=== PATIENT | male | born 1975 | race Caucasian/White ===

== ENCOUNTER 2019-04-04 09:01 | Observation (INO) ==
--- NOTE | 2019-03-27 16:28 | PAT Medication Instructions ---
Medication Instructions Date of Service March 27, 2019 Home Medications acetaminophen [Tylenol Extra Strength] 1,000 mg PO TID PRN aspirin [Aspir-81] 81 mg PO QAM diltiazem HCl 120 mg PO QAM fluticasone propionate [Flonase Allergy Relief] 2 spray INTRANASAL DAILY PRN glucosam hickey cip-[id number]-O-Mn 2 cap PO QAM turmeric root extract 1,000 mg PO QAM STOP taking 2 weeks before surgery glucosam hickey kqp-gtkdolqly-O-Mn 2 cap PO QAM turmeric root extract 1,000 mg PO QAM Take morning of surgery With a small sip of water, OTHERWISE NOTHING TO EAT OR DRINK AFTER MIDNIGHT: acetaminophen [Tylenol Extra Strength] 1,000 mg PO TID PRN (if needed, may be taken up to four hours before surgery) aspirin [Aspir-81] 81 mg PO QAM diltiazem HCl 120 mg PO QAM fluticasone propionate [Flonase Allergy Relief] 2 spray INTRANASAL DAILY PRN (if needed) Other Notes If you have any questions please call us at [phone] or [phone] or [phone] or [phone]
--- NOTE | 2019-03-28 08:56 | Anesthesiology Consultation ---
Date of Service March 28, 2019 Assessment & Plan (1) Encounter for pre-operative examination: Patient had cardiac MRI 04/02 ordered by patent prosecution attorney for evaluation of brief episode of nonsustained v tach he had while hospitalized for new-onset afib. MRI ordered to exclude right ventricular pathology. Preliminary reading of cardiac MRI showed possible acute/subacute myocarditis. Attempted to contact patient's patent prosecution attorney, but he was out of the office. [facility] patent prosecution attorney print production manager ([place]) would not comment on perioperative status as he is not familiar with the patient. Case discussed with Dr. Hodge, who feels the patient should be fine to tolerate anesthesia, but concern for surgeon placing hardware with possible infection. Spoke with Dr. Garcia directly, and he is OK with proceeding. Chart Review Chart Review: Acceptable Risk for Surgery and Patient seen in Pre Admission Testing Teaching & Discussion Instructed NPO after midnight before surgery, except medications with 15 cc of water. Medication instructions provided according to the PAT guidelines. History Surgery Operation Date: 04/04/19 09:05 Proposed Procedures p L4-L5 Decompression with Coflex Implantation - Henry Garcia DO Height/Weight Height: 6 ft 3 in Weight: 102.058 kg Allergies Allergy/AdvReac Type Severity Reaction Status Date / Time Penicillins Allergy Intermediate Rash Verified 04/03/19 09:51 Medications Home Medications Medication Instructions Recorded Confirmed Last Taken acetaminophen [Tylenol Extra 1,000 mg PO TID PRN 03/21/19 03/21/19 Unknown Strength] aspirin [Aspir-81] 81 mg PO QAM 03/21/19 03/21/19 Unknown diltiazem HCl 120 mg PO QAM 03/21/19 03/21/19 Unknown fluticasone propionate [Flonase 2 spray INTRANASAL DAILY PRN 03/21/19 03/21/19 Unknown Allergy Relief] glucosam hickey [id number]-mgzeepgwa-J-Mn 2 cap PO QAM 03/21/19 03/21/19 Unknown turmeric root extract 1,000 mg PO QAM 03/21/19 03/21/19 Unknown Past Medical History Medical History Atrial fibrillation DX'D 02/08/19-ON ASA 81mg Chronic back pain TO LEFT FOOT Exercise / Class Metabolic Activity 1 > 8 Run/Swim/Ski/Tennis Past Family History Family History Grandmother (Maternal) No problems noted. Grandmother (Paternal) Family history of diabetes mellitus Grandfather (Maternal) Family history of diabetes mellitus Past Surgical History Surgical History History of adenoidectomy History of herniorrhaphy BILAT History of myringotomy X 3 WITH EAR TUBES History of tonsillectomy Past Anesthesia History No Hx of Anesthesia Complications and No Family Hx of Anesthesia Complications History of PONV No Hx of PONV and No Hx of Motion Sickness Social History Smoking Status: Never smoker Do You Dip or Chew Tobacco: No Hx Alcohol Use: Yes Alcohol type: beer and wine alcohol intake frequency: 0-2 drinks per day (1/day) Hx Substance Use: No Review of Systems Pt denies any recent chest pain, shortness of breath, palpitations, cough, fever or URI. +mild URI last week, resolving now. Physical Exam Vital Signs BP: 154/84 P: 58bpm SPO2: 98% RA T: 98.5 F R: 16 ENMT Mouth: + dental restorations (single implant #32); no chipped teeth and no loose teeth Thyromental Distance: > or= 3.5 Finger Breadths (4) Mallampati Class: I Neck normal visual inspection; neck extension not limited Respiratory normal respiratory effort Auscultation: lungs clear to auscultation bilaterally Cardiovascular Rate/Rhythm: regular rhythm and + bradycardic Heart Sounds: no murmur Testing Laboratory Results 03/28/19 09:16 03/28/19 09:16 03/28/19 03/28/19 03/28/19 09:16 09:16 09:16 PT 10.3 INR 1.0 APTT 24.8 Urine Color Yellow Urine Appearance Clear Urine pH 7.0 Ur Specific [place] 1.005 Urine Protein Negative Urine Glucose (UA) Negative Urine Ketones Negative Urine Nitrite Negative Ur Leukocyte Esterase Negative Blood Type AB Positive Antibody Screen NEGATIVE Electrocardiogram Date: 02/09/19 Findings: + NSR @ (72) Chest X-Ray Date: 02/08/19 Findings: + NAD Low lung volumes. Echocardiogram Date: 02/09/19 EF: 55-59% Examination is adequate to evaluate the referral indication. No LV segmental wall motion of normalities. The right ventricular systolic function is qualitatively normal. No significant valvular disease is present. Other Testing Cardiac MRI 04/02/19 -- PRELIMINARY READING Cardiac MRI findings of normal biventricular function. There is atypical mid wall enhancement noted in septal segments on late gadolinium enhanced imaging and atypical subepicardial enhancement noted in basal inferior and inferolateral segments on late gadolinium enhanced imaging. This may suggest acute/subacute myocarditis.* There is evidence of edema/inflammation in the basal inferior and inferolateral wall on T2 parametric imaging. No cardiac MRI evidence of arrhythmogenic right ventricular dysplasia. The left ventricular systolic function is normal. Left ventricular cavity size is normal. The LV wall thickness is mildly increased. Calculated LV ejection fraction is 56%. The right ventricular systolic function is normal. The right ventricle is normal in size. The calculated RVEF is 63%. Would recommend follow-up imaging in 3 to 6 months. *SURGEON MADE AWARE -- HE IS OKAY WITH PROCEEDING.
[2019-03-28 10:55] LABS: Basophils # (auto) 0.01 K/uL (0-0.2); Basophils % (auto) 0.3 %; Eosinophils # (auto) 0.04 K/uL (0-0.5); Eosinophils % (auto) 1.1 %; Hematocrit (blood only) 43.3 % (42-52); Hemoglobin 15.2 g/dL (14.0-18.0); Immature Granulocytes # (auto) 0.01 K/uL (0.00-0.02); Immature Granulocytes % (auto) 0.3 %; Lymphocytes # (auto) 1.41 K/uL (1.2-3.4); Lymphocytes % (auto) 38.7 %; Mean Corpuscular Hgb Conc 35.1 g/dL (32-36); Mean Corpuscular Volume 92.7 fL (80-100); Mean Platelet Volume 8.8 fL (7.4-10.4); Monocytes # (auto) 0.37 K/uL (0.11-0.59); Monocytes % (auto) 10.2 %; Neutrophils % (auto) 49.4 %; Platelet Count 192 K/uL (130-400); RDW Coefficient of Variation 12.2 % (11.5-14.5); RDW Standard Deviation 40.9 fL (36.4-46.3); Red Blood Count 4.67 M/uL (4.7-6.1); White Blood Count 3.64 K/uL (4.8-10.8)
[2019-03-28 11:00] LABS: Appearance Urine Clear (Clear); Bilirubin Urine Negative (Negative); Blood Urine Negative (Negative); Color Urine Yellow; Glucose Urine UA Negative (Negative); Ketones Urine Negative (Negative); Leukocyte Esterase Urine Negative (Negative); Nitrite Urine Negative (Negative); Protein Urine Negative (Negative); Specific Gravity Urine 1.005 (1.000-1.030); Urobilinogen Urine Negative (Negative)
[2019-03-28 11:03] LABS: Calcium 9.7 mg/dl (8.5-10.1); Creatinine Clr Calc Pharmacy 120.8 ml/min; Est GFR (African American) 104.9; Est GFR (Non-African American) 90.5; Potassium 4.8 mmol/L (3.5-5.1)
[2019-03-28 11:10] LABS: Partial Thromboplastin Ratio 0.9; Partial Thromboplastin Time 24.8 Seconds (21.0-31.0); Prothrombin Time 10.3 Seconds (9.0-12.0)
[~2019-04-04 09:01] MED LIST: ACETAMINOPHEN 500 MG TAB PO SCH; CLINDAMYCIN 600 MG/54 ML BAG IV SCH; CeleBREX 200 MG CAP PO SCH; GABAPENTIN 300 MG x 3 PO SCH; LR 15ML/HR IV SCH
[2019-04-04] MEDS ORDERED: ONDANSETRON INJ 2 MG/ML 2 ML VIAL IV PRN ×2 (10:26→14:27)
[2019-04-04] MEDS ORDERED: ePHEDrine sulfate 50 MG/ML AMP IV PRN (10:26)
[2019-04-04] MEDS ORDERED: ATROPINE SULFATE 0.1 MG/ML 10ML SYR IV PRN (10:26)
[2019-04-04] MEDS ORDERED: fentaNYL citrate 100 MCG/2 ML VIAL IV PRN (10:26)
[2019-04-04] MEDS ORDERED: HYDROmorphone INJ 2 MG/ML SYR/VIAL IV PRN (10:26)
[2019-04-04] MEDS ORDERED: PROMETHAZINE HCL 6.25 MG in SODIUM CHLORIDE 0.9% 50 ML IV PRN (10:26)
[2019-04-04] MEDS ORDERED: MIDAZOLAM HCL 1 MG/ML 2ML VIAL ONE (10:48)
[2019-04-04] MEDS ORDERED: fentaNYL citrate 100 MCG/2 ML VIAL ONE ×3 (10:48→12:16)
--- NOTE | 2019-04-04 11:04 | History & Physical Bridge Note ---
Date of Service April 04, 2019 History & Physical Bridge Note I have examined the patient, reviewed the History & Physical and in the interval since the performance of the History & Physical I have noted the following changes of clinical significance: no changes noted
--- NOTE | 2019-04-04 11:05 | History & Physical Report ---
Date of Service April 04, 2019 Assessment & Plan (1) Spinal stenosis, lumbar region with neurogenic claudication: L4-L5 decompression with Coflex implantation Present on Admission?: Yes History of Present Illness Chief Complaint: Back and leg pain Primary Care Provider: Kayleen Blanton MD This is a 43-year-old male who presents with chronic persistent back and leg pain. After failing course of nonoperative care is here for surgical intervention. Allergies Allergy/AdvReac Type Severity Reaction Status Date / Time Penicillins Allergy Intermediate Rash Verified 04/04/19 09:23 Home Medications Home Medications Medication Instructions Recorded Confirmed Type acetaminophen [Tylenol Extra 1,000 mg PO TID PRN 03/21/19 04/04/19 History Strength] aspirin [Aspir-81] 81 mg PO QAM 03/21/19 04/04/19 History diltiazem HCl 120 mg PO QAM 03/21/19 04/04/19 History fluticasone propionate [Flonase 2 spray INTRANASAL DAILY PRN 03/21/19 04/04/19 History Allergy Relief] glucosam hickey slo-yyvijoqwe-Y-Mn 2 cap PO QAM 03/21/19 04/04/19 History turmeric root extract 1,000 mg PO QAM 03/21/19 04/04/19 History Past Med/Surg History Medical History Atrial fibrillation DX'D 02/08/19-ON ASA 81mg Chronic back pain TO LEFT FOOT Surgical History History of adenoidectomy History of herniorrhaphy BILAT History of myringotomy X 3 WITH EAR TUBES History of tonsillectomy Family History Grandmother (Maternal) No problems noted. Grandmother (Paternal) Family history of diabetes mellitus Grandfather (Maternal) Family history of diabetes mellitus Social History Preferred Language: [place] Communication Ability: Effective Uniform Designer Required: No Beliefs That Will Affect Care: None Current Living Situation: Alone Other Information That Helps Us Care for You: No Feels Safe at Home: Yes Safety Concerns: Feels Safe At This Time Smoking Status: Never smoker Do You Dip or Chew Tobacco: No Second Hand Exposure: No Hx Alcohol Use: Yes Alcohol type: beer and wine Hx Substance Use: No Physical Exam Physical Exam: Patient is alert and oriented neurologically intact. Results & Data Vital Signs (Past 12 Hours) Vital Signs Temp Pulse Resp BP Pulse Ox 04/04/19 09:26 36.9 C 71 18 143/83 H 97
[2019-04-04] MEDS ORDERED: BUPIVACAINE/EPINEPHRINE 0.5% MPF 1:200,000 30 ML VIAL ONE (11:15)
[2019-04-04] MEDS ORDERED: BACITRACIN INJ 50,000 UNIT VIAL ONE (11:15)
[2019-04-04] MEDS ORDERED: HYDROmorphone INJ 2 MG/ML SYR/VIAL ONE ×2 (11:15→12:36)
[2019-04-04] MEDS ORDERED: GELATIN SPONGE SZ 100 ONE (11:16)
[2019-04-04] MEDS ORDERED: THROMBIN FOR SOLN 20000 UNIT KIT ONE (11:16)
[2019-04-04] MEDS ORDERED: DEXAMETHASONE SOD INJ 4 MG/ML VIAL ONE (12:16)
[2019-04-04] MEDS ORDERED: KETOROLAC 30 MG/ML VIAL ONE (12:16)
[2019-04-04] MEDS ORDERED: ONDANSETRON INJ 2 MG/ML 2 ML VIAL ONE (12:16)
[2019-04-04] MEDS ORDERED: LIDOCAINE HCL 2% 2 ML VIAL/AMP(20MG/ML) INFIL ONE (12:16)
[2019-04-04] MEDS ORDERED: PROPOFOL IV EMULSION 10 MG/ML 20 ML VIAL IV ONE (12:16)
[2019-04-04] MEDS ORDERED: NEOSTIGMINE METHYLSULFATE 1 MG/ML 10ML VIAL ONE (12:16)
[2019-04-04] MEDS ORDERED: ROCURONIUM BROMIDE 10 MG/ML 5 ML VIAL ONE (12:16)
[2019-04-04] MEDS ORDERED: GLYCOPYRROLATE 0.2 MG/ML VIAL ONE (12:16)
--- NOTE | 2019-04-04 12:41 | Operative Report ---
Post Operative Report Pre & Post Diagnosis Operation Date: 04/04/19 11:25 Pre-Op Diagnosis: Spinal stenosis, lumbar region with neurogenic claudication Post-Op Diagnosis: Spinal stenosis, lumbar region with neurogenic claudication Procedure Operation Date: 04/04/19 11:25 Actual Procedures #1 lumbar decompression with bilateral medial facetectomies and removal of herniated free fragment L4-5. #2 placement of Coflex interlaminar spacer 10 mm in height. Surgeon Henry Garcia DO Emt I/85 Doris Perry Estimated Blood Loss 25 Findings Consistent with Post-Op Diagnosis Specimens None Indications Patient presents with continued sciatica unremitting in nature not responding to nonoperative care subsequently is here for surgical intervention. Description of Procedure The patient was met with identified and informed consent obtained. He was then taken to the operative suite underwent ablation placed in a prone position on the Nazario table on top of the Ulises frame. All bony prominences well-padded eyes inspected to ensure no external pressure placed upon the peer at this point the lumbar spine was prepped and draped in a normal sterile fashion. Sharp dissection with the assistance of Bovie cautery was performed down to and exposing the interlaminar space at L4-5 bilaterally. A midline decompression was then performed including bilateral medial facetectomies for complete decompression. I then mobilized the traversing L5 nerve root on the left. Several large fragments of disc material were then retrieved creating significant decompression of the root. Incision was then copiously irrigated and a 10 mm Coflex interlaminar spacer tapped into position and crimped into place. Incision was then copiously irrigated 10 round FAN drain inserted. Was then closed with 1 Vicryl in the fascia 2-0 Vicryl subcutaneous and 4 Monocryl for final skin closure. Steri-Strip sterile dressings placed. Patient awakened taken to PACU stable condition. Please note Doris Perry present throughout the entire procedure involved in patient positioning complex portions of the surgery and final closure. Lastly spinal cord monitoring was utilized and no changes noted. I attest to the content of the Intraoperative Record and any orders documented therein. Any exceptions are noted below.
--- NOTE | 2019-04-04 13:07 | Fluoroscopy Report ---
FL spine 1V any level CLINICAL HISTORY: L4-L5 DECOMPRESSION WITH COFLEX COMPARISON STUDY: None. FLUOROSCOPY TIME: 5.7 seconds. FLUOROSCOPIC IMAGES: 1. FINDINGS: Lateral fluoroscopic image demonstrates placement of an L4-L5 Coflex device. IMPRESSION: Fluoroscopic image demonstrating placement of an L4-L5 Coflex device. Electronically signed by: Itz Zamora M.D. 04/04/2019 1:06 PM
--- NOTE | 2019-04-04 13:31 | Anesthesiology Progress Note ---
Date of Service April 04, 2019 Anesthesia Post Procedure Vital Signs Vital Signs: Temp Pulse Pulse Resp BP Pulse Ox 04/04/19 13:25 59 L 17 151/87 H 100 04/04/19 13:15 66 21 139/88 100 04/04/19 13:05 77 17 143/89 H 100 04/04/19 12:58 36.3 C L 89 10 L 140/89 99 04/04/19 09:26 36.9 C 71 18 143/83 H 97 Pain Intensity Left Other: Pain Intensity: 5 Transfer of Care Handoff Completed per policy Notes Mental Status: alert / awake / arousable Patient Amnestic to Procedure: Yes Nausea / Vomiting: adequately controlled Pain: adequately controlled Airway Patency, RR, SpO2: stable & adequate BP & HR: stable & adequate Hydration State: stable & adequate Anesthetic Complications: no major complications apparent Notes: No arrhythmia encountered in immediate perioperative period. Given his recent cardiac MRI indicating acute/subacute myocarditis without overt CHF, will observe him on business systems developer overnight. I have discussed this recommendation with Dr Garcia.
[2019-04-04] MEDS ORDERED: MAGNESIUM HYDROXIDE SUSP 30 ML UDC PO PRN (14:27)
[2019-04-04] MEDS ORDERED: LORazepam 1 MG/2 ML VIAL IV PRN (14:27)
[2019-04-04] MEDS ORDERED: DO NOT ADMINISTER FLU VACCINE PRN (14:27)
[2019-04-04] MEDS ORDERED: ACETAMINOPHEN 500 MG TAB PO PRN (14:27)
[2019-04-04] MEDS ORDERED: LORazepam 1 MG TAB PO PRN (14:27)
[2019-04-04] MEDS ORDERED: OXYCODONE HCL IR 5 MG TAB (IMMEDIATE RELEASE) PO PRN (14:27)
[2019-04-04] MEDS ORDERED: KETOROLAC 30 MG/ML VIAL IV PRN (14:27)
[2019-04-04] MEDS ORDERED: HYDROmorphone INJ 1 MG/ML SYRINGE IV PRN (14:27)
[2019-04-04] MEDS ORDERED: DO NOT ADMINISTER PNEUMOCOCCAL VACCINE PRN (14:27)
[2019-04-04] MEDS: LACTATED RINGER'S 1,000 ML IV SCH (14:35)
[2019-04-04] MEDS: DOCUSATE SODIUM 100 MG CAP PO SCH (20:50)
[2019-04-04] MEDS: CLINDAMYCIN 600 MG in DEXTROSE 5% 50 ML IV SCH (21:00)
[2019-04-04] MEDS: ACETAMINOPHEN 325 MG TAB PO PRN (23:38)
[2019-04-05] MEDS: CLINDAMYCIN 600 MG in DEXTROSE 5% 50 ML IV SCH ×2 (03:30→12:03)
[2019-04-05] MEDS: LACTATED RINGER'S 1,000 ML IV SCH (03:30)
--- NOTE | 2019-04-05 08:21 | Discharge Summary ---
Date of Service April 05, 2019 Admission HPI Per Admitting Provider This is a 43-year-old male who presents with chronic persistent back and leg pain. After failing course of nonoperative care is here for surgical intervention. Principal Diagnosis Herniated was pulposis with spinal stenosis L4-5 Discharge Data Allergies Allergy/AdvReac Type Severity Reaction Status Date / Time Penicillins Allergy Intermediate Rash Verified 04/04/19 09:23 Procedures Performed Operation Date: 04/04/19 11:25 Actual Procedures p L4-L5 Decompression with Coflex Implantation(Not Applicable) - Henry Garcia DO Ordered Studies 04/04/19 09:05 FL fluoroscopy <1hr Routine FL spine 1V any level Routine Hospital Course (1) Spinal stenosis, lumbar region with neurogenic claudication: Patient underwent lumbar decompression discectomy tolerated as well as taken to the telemetry floor postoperative. Postop day 1 his back pain was controlled leg symptoms markedly improved. FAN drain decreasing probably. Subsequently was discharged home. Discharge orders and instructions can be found chart for further review. Total Time Total Time Spent Total Time Spent (In Minutes): 10 minutes Discharge Plan Discharge Items Patient Disposition: Home - Self-Care Reason For Visit: LUMBAR IV DISC DISORDERS W/RADICULOPATHY Discharge Diagnosis: lumbar disc herniation Discharge Goals: Improve function Activity: Per 'Additional Instructions' section Non-emergency contact: Primary Care Provider Call non-emergency contact if: you have any medication questions Follow-up/Referrals: Kayleen Blanton MD [Primary Care Provider] - Diet: Regular Addtl Provider Instructions: ACTIVITY RECOMMENDATIONS: SELF CARE INSTRUCTIONS AFTER A LAMINECTOMY 1. No prolonged sitting (less than 30 minutes for the first 3 weeks after surgery). 2. No bending, lifting more than 5 pounds, or twisting (roll like a log when turning in bed). 3. You may shower 3 days after surgery if no drainage from wound. Thoroughly dry wound. Do not soak in the tub. 4. Please walk as much as you can for exercise. Gradually increase the distance that you walk as your endurance increases. 5. You may drive in 7-10 days if you are comfortable and no longer requiring pain medications. SPECIAL CARE INSTRUCTIONS: VERY IMPORTANT TO READ AND REVIEW A. Your surgical incision has been closed with a cosmetic suture under the skin that will dissolve in about 6 weeks. In 14 days, you can use a pair of clean scissors and cut the suture that is left outside of the skin at the ends of your incision. B. Complications are uncommon, but please contact us if you have any signs or symptoms of: 1. wound infection (fever higher than 102.5 degrees F, redness, separation of wound, drainage, or increasing pain from the incision) 2. blood clots in legs (pain, swelling, redness and warmth in legs) 3. urinary tract infection (fever higher than 102.5 degrees, burning upon urination or increased frequency of urination) 4. nerve problems (inability to walk on your toes or heels, numbness, loss of bowel or bladder control) 5. any other symptoms that concern you. C. Please call the office at if you have any concerns or questions about your operation or recovery. MANAGING PAIN AFTER SPINAL SURGERY 1. Narcotic medication is intended for short-term use and will be provided for surgical pain. Surgical pain usually lasts for a period of 4-6 weeks. Narcotic medication includes Percocet, Vicodin, Darvocet, Tylenol #3 or Lortab. 2. Longer-term pain is more appropriately treated with non-narcotic medication such as Tylenol ES. 3. Muscle spasm is not appropriately treated with narcotics. Muscle relaxers such as Soma, Flexeril or Skelaxin can be used along with Tylenol ES. 4. Remember that we all live with some "aches and pains". This is not unusual or uncommon after an injury or as we get older. 5. We will provide appropriate medication within the normal guidelines of their prescribed use. We will also be very cautious and aware of potential abuse and extended duration of patients' medication needs. 6. Please allow 2-3 days to process refills. Prescriptions will not be mailed but must be picked up at the office. FOLLOW UP VISIT: Keep your scheduled follow-up appointment. Any questions, please call the office at . Prescriptions: New oxycodone 5 mg Tablet 5 mg PO Q4H PRN (Reason: Pain) Qty: 20 RF: 0 Continued aspirin [Aspir-81] 81 mg Tablet,Delayed Release (Dr/Ec) 81 mg PO QAM RF: 0 acetaminophen [Tylenol Extra Strength] 500 mg Tablet 1,000 mg PO TID PRN (Reason: Pain) RF: 0 diltiazem HCl 120 mg Capsule,Extended Release 24hr 120 mg PO QAM RF: 0 glucosam hickey lgi-ywnkfxxqt-I-Mn [id number] mg Capsule 2 cap PO QAM RF: 0 turmeric root extract 500 mg Capsule 1,000 mg PO QAM RF: 0 fluticasone propionate [Flonase Allergy Relief] 50 mcg/actuation [place],Suspension 2 spray INTRANASAL DAILY PRN (Reason: Congestion) RF: 0 Stand-Alone Forms: [facility] Discharge Orders: Discharge Order (Routine); Ordered 04/05/19 Ordered By: Henry Garcia Admission Data Admit Date/Time: 04/04/19 12:45 Attending Provider: Henry Garcia Admit Provider: Henry Garcia Primary Care Provider: Kayleen Blanton Service: Surgical Services
[2019-04-05] MEDS: DOCUSATE SODIUM 100 MG CAP PO SCH (08:49)
[2019-04-05] MEDS ORDERED: dilTIAZem HCL 120 MG CAPCR PO SCH (09:00)
[2019-04-05] MEDS ORDERED: TURMERIC ROOT EXTRACT 1000 MG PO SCH (09:00)
[2019-04-05] MEDS ORDERED: ASPIRIN 81 MG ECTAB PO SCH (09:00)
[2019-04-05] MEDS: ACETAMINOPHEN 325 MG TAB PO PRN (12:50)
[2019-04-06] MEDS ORDERED: BISACODYL 5 MG TABEC PO PRN (06:00)
[2019-04-06] MEDS ORDERED: POLYETHYLENE (MIRALAX) 17 GM PACK PO SCH (09:00)
== END 2019-04-05 13:56 | disposition home or self-care (01) ==
LOC: 2S 09:01 → ASU 09:01